=== PATIENT | female | born 1965 | race Caucasian/White ===

== ENCOUNTER 2016-11-19 09:30 | Emergency (ER) | payer OTHER ==
[~2016-11-19] VITALS: Ht 154.9 cm; Wt 56.2 kg
[~2016-11-19 09:30] MED LIST: ALBUTEROL0.09 MG/A1 INH; AMOXICILLIN500 M1 PO; AMOXICILLIN500 M3 PO; ATORVASTATIN CA10 M1 PO; AUGMENTIN 875 M1 TAB PO; NASONEX0.05 MG/Ac NAS; NASONEX17 GM NASB; PREDNISONE50 MG PO; RESTASIS 0.4 M0.4 ML OPH; ROBITUSSIN W/CO10 ML PO; TESSALON PERLE100 M1 PO; TESSALON PERLE100 MG PO; ZITHROMAX Z-PA250 M1 PO
[2016-11-19] MEDS ORDERED: LANSOPRAZOLE30 M2 PO (10:51)
[2016-11-19] MEDS ORDERED: BIAXIN500 M1 PO (10:52)
[2016-11-19] MEDS ORDERED: AMOXICILLIN500 M3 PO (10:52)
--- NOTE | 2016-11-19 10:52 | ED GI/GU/ABDOMINAL COMPLAINT ---
History of Present Illness General Chief Complaint: Female Urogenital Problems Stated Complaint: ? UTI Source: patient Exam Limitations: poor historian Vital Signs & Intake/Output Vital Signs & Intake/Output Vital Signs Date Time Temp Pulse Resp B/P B/P Pulse O2 O2 Flow FiO2 Mean Ox Delivery Rate 11/19 1156 97.8 98 18 148/81 100 Room Air 11/19 1020 97.5 108 18 164/86 99 Room Air Allergies Coded Allergies: NO KNOWN ALLERGIES (04/04/13) Reconcile Medications Atorvastatin Calcium 10 MG TABLET 1 TAB PO DAILY CHOLESTEROL (Reported) Lansoprazole/Amoxiciln/Clarith (Prevpac Patient Pack) 30 MG-500 MG-500 MG COMBO..PKG 1 PAC PO BID ANTIBIOTIC, INFECTION (Reported) Mirtazapine 15 MG TABLET 1 TAB PO QPM SLEE[ (Reported) Triage Note: PT STATES THAT SHE HAS BEEN HAVING URINARY RETENTION , STARTED 2 WEEKS AGO, WAS SEEN BY HER PMD 2 WEEKS AGO AND WAS STARTED ON ABT DUE TO UTI, WAS SEEN BY UROLOGIST LAST TUESDAY AND THEY STRAIGHT CATHED HER AFTER SHE VOIDED AND SHE HAD A LOT OF URINE STILL IN HER BLADDER. PT ALSO STATES THAT SHE IS ON ABT FOR H PYLORI. Triage Nurses Notes Reviewed? yes LMP (ages 10-50): post menopausal ? n Is pt currently ? No Onset: Abrupt Duration: day(s): (2-3) Timing: single episode today Quality/Severity: cramping, dullness, fullness Severity Numbers: 7 Location: suprapubic Radiation: no radiation Activities at Onset: urinating Prior Abdominal Problems: none Past Sexual History: Unobtainable at this time Sexually Active: No Last Time You Were Sexual: greater than 2 months ago No Modifying Factors: none Modifying Factors: Worsens With: urinating. Associated Symptoms: abdominal pain, lower back pain, urinary frequency HPI: 50-year-old female with history of recurrent UTIs presents complaining of urinary frequency suprapubic abdominal pain and lower back pain for the past 2 days. Patient worse that she initially started having symptoms 2 weeks ago and was seen by her primary care doctor. She was started on Bactrim DS for possible UTI. Patient reports that symptoms did not improve with antibiotics and she has a history of urinary retention. She feels that when she chose to the bathroom she is unable to completely void her bladder. She reports pain is located in the suprapubic area and lower back that is worse with movement. She discussed pain as a pressure and fullness is rated as a 7 out of 10. She's been taking ibuprofen 800 without significant improvement. Patient is currently also on antibiotics for H. pylori. No fevers, vaginal discharge, vaginal bleeding, sexual activity, chest pain, shortness of breath, diarrhea. (AMY BORDEN PA-C) Past History Travel History Traveled to [place] past 21 day No Medical History Any Pertinent Medical History? see below for history Neurological: NONE EENT: NONE Cardiovascular: hyperlipidemia Respiratory: asthma Gastrointestinal: NONE Hepatic: NONE Renal: NONE Musculoskeletal: NONE Psychiatric: anxiety Endocrine: NONE Blood Disorders: NONE Cancer(s): NONE COOKER SULFATE/Reproductive: NONE Surgical History Surgical History: N Psychosocial History What is your primary language Colombian Tobacco Use: Never used ETOH Use: denies use Illicit Drug Use: denies illicit drug use Family History Hx Contributory? No (AMY BORDEN PA-C) Review of Systems Review of Systems Constitutional: Reports: no symptoms. EENTM: Reports: no symptoms. Respiratory: Reports: no symptoms. Cardiovascular: Reports: no symptoms. GI: Reports: see HPI, abdominal pain, bloating. Genitourinary: Reports: see HPI, frequency, urgency. Musculoskeletal: Reports: no symptoms. Skin: Reports: no symptoms. Neurological/Psychological: Reports: no symptoms. Hematologic/Endocrine: Reports: no symptoms. Immunologic/Allergic: Reports: no symptoms. All Other Systems: Reviewed and Negative (AMY BORDEN PA-C) Physical Exam Physical Exam General Appearance: well developed/nourished, no apparent distress, alert, awake , mild distress Head: atraumatic, normal appearance Eyes: Bilateral: normal appearance, PERRL, EOMI, normal inspection. Ears, Nose, Throat, Mouth: hearing grossly normal, moist mucous membrane, Tympanic normal Neck: normal inspection, supple, full range of motion, normal alignment Respiratory: normal breath sounds, chest non-tender, no respiratory distress, lungs clear Cardiovascular: regular rate/rhythm, edema, normal peripheral pulses Peripheral Pulses: 2+ tibialis posterior (R), 2+ tibialis posterior (L), 2+ dorsalis pedis (R), 2+ dorsalis pedis (L) Gastrointestinal: normal bowel sounds, soft, no organomegaly, tenderness ( SUPRAPUBIC) Back: normal inspection, normal range of motion, no vertebral tenderness Extremities: normal range of motion Neurologic/Psych: no motor/sensory deficits, awake, alert, oriented x 3, normal gait Skin: intact, normal color, warm/dry Comments: Pain with palpation in the suprapubic area. Lumbar paraspinous muscle tenderness palpation. No rebound tenderness or guarding. Core Measures ACS in differential dx? No Severe Sepsis Present: No Septic Shock Present: No (BLACK PA-C,AMY) Progress Differential Diagnosis: appendicitis, biliary colic, cholecystitis, diverticulitis, gastritis, hernia, kidney stone, UTI/pyelo, URINARY RETENTION Plan of Care: Orders Procedure Date/time Status Add-on Test (ER Only) 11/19 1140 Active CULTURE,URINE 11/19 1140 Active COMPREHENSIVE METABOLIC PANEL 11/19 1119 Complete CBC WITHOUT DIFFERENTIAL 11/19 1119 Complete URINALYSIS 11/19 1032 Complete Laboratory Tests 11/19/16 1124: Anion Gap 12, Estimated GFR > 60, BUN/Creatinine Ratio 25.7 H, Glucose 97, Calcium 10.1, Total Bilirubin 0.5, AST 73 H, ALT 110 H, Alkaline Phosphatase 63, Total Protein 7.9, Albumin 4.8, Globulin 3.1, Albumin/Globulin Ratio 1.5, CBC w Diff NO MAN DIFF REQ, RBC 4.32, MCV 88.4, MCH 29.7, RDW 12.4, MPV 7.5, Gran % 65.6, Lymphocytes % 22.5, Monocytes % 9.2, Eosinophils % 2.3, Basophils % 0.4, Absolute Granulocytes 4.3, Absolute Lymphocytes 1.5, Absolute Monocytes 0.6 , Absolute Eosinophils 0.2, Absolute Basophils 0, PUBS MCHC 33.6 11/19/16 1032: Urine Color STRAW, Urine Clarity CLEAR, Urine pH 6.0, Ur Specific Bryan <= 1.005, Urine Protein NEG, Urine Ketones NEG, Urine Nitrite NEG, Urine Bilirubin NEG, Urine Urobilinogen 0.2, Ur Leukocyte Esterase NEG, Ur Microscopic SEDIMENT EXAMINED, Urine RBC RARE, Urine WBC RARE, Urine Hemoglobin TRACE-INTACT, Urine Glucose NEG Microbiology 11/19 1032 URINE ROUT: Urine Culture - RECD 12:11 PM blood work is back and shows mildly elevated potassium at 5.3 elevated AST and ALT but is otherwise within normal limits. CAT scan of the abdomen and pelvis is within normal limits. There is a moderate amount of urine in the bladder but it is not distended. Patient reports that she recently was able to urinate after the CAT scan and is feeling much better. Reviewed all results with patient and advised that she needs to follow up with her primary care doctor and her urologist this week. We'll follow-up on the urine culture. Discussed case with Dr. Tang and he is in agreement with the plan. she is nontoxic appearing at discharge and is in agreement with the plan. (MICHI BAPTISTE,AMY) Diagnostic Imaging: Viewed by Me: CT Scan. Initial ED EKG: none Comments: EXAM TYPE: CAT - CT ABD & PELVIS W/O IV CONTRAS EXAMINATION: CT ABDOMEN AND PELVIS WITHOUT CONTRAST CLINICAL INFORMATION: Back pain pelvic pain COMPARISON: None TECHNIQUE: Multidetector volumetric imaging was performed from the superior aspect of the liver through the pubic symphysis. Sagittal and coronal reformatted images were obtained on the technologist's workstation. DLP: 254 mGy-cm FINDINGS: LUNG BASES: The visualized lung bases are unremarkable. LIVER, GALLBLADDER, AND BILIARY TREE: The liver is normal in size, shape, and attenuation. No focal hepatic lesion or biliary ductal dilatation is present. The gallbladder is unremarkable with no evidence of radiopaque gallstones, gallbladder wall thickening, or obvious pericholecystic inflammatory changes. PANCREAS: The pancreas is normal in appearance SPLEEN: Spleen is normal in size and attenuation with no focal findings ADRENAL GLANDS: Normal KIDNEYS AND URETERS: Both kidneys are normal in size and cortical thickness. No intrarenal calculus is identified. No mass or perinephric fluid is seen. There is no hydronephrosis or hydroureter. BLADDER: The urinary bladder is moderately full and unremarkable in appearance GASTROINTESTINAL TRACT: There is no evidence for large or small bowel obstruction or acute inflammation. There is no significant diverticulosis or diverticulitis. Appendix is not visualized but no inflammatory changes are seen in the right lower quadrant ABDOMINAL WALL: No significant hernia is appreciated. LYMPH NODES: No bulky adenopathy VASCULAR: The abdominal aorta and inferior vena cava are normal in size and appearance PELVIC VISCERA: Uterus and adnexal structures are normal in appearance. No mass, free fluid, or abnormal fluid collection is identified. Several small round calcifications in the pelvis are outside the urinary tract and are likely phleboliths. OSSEOUS STRUCTURES: No acute bony abnormality is seen. IMPRESSION: No significant abnormality is seen in the CT scan of the abdomen and pelvis. DICTATED BY: REBEKAH STEELE MD DATE/TIME DICTATED:11/19/161149 PROGRAMMABLE LOGIC CONTROLLER ASSEMBLER:ASA DATE/TIME TRANSCRIBED:11/19/161149 (AMY BORDEN PA-C) Departure Departure Disposition: HOME OR SELF CARE Condition: Stable Clinical Impression Primary Impression: Abdominal pain Qualifiers: Abdominal location: lower abdomen, unspecified Qualified Code: R10.30 - Lower abdominal pain, unspecified Secondary Impressions: Acute urinary retention Referrals: NICHOLE GHOTRA APRN (PCP/Family) Additional Instructions: Rest drink plenty fluids. Continue antibiotics as directed by her primary care doctor. Make a follow-up appointment with her primary care doctor and urologist this week. Use ibuprofen 100 mg every 8 hours with food as needed for pain. Review of results of today's visit with her primary care doctor. Return to the emergency department with any concerns. Departure Forms: Customer Survey General Discharge Information (AMY BORDEN PA-C) PA/ATHLETICS TEACHER Co-Sign Statement Statement: ED Attending supervision documentation- [] I saw and evaluated the patient. I have also reviewed all the pertinent lab results and diagnostic results. I agree with the findings and the plan of care as documented in the PA's/ATHLETICS TEACHER's documentation. [x] I have reviewed the ED Record and agree with the PA's/ATHLETICS TEACHER's documentation. [] Additions or exceptions (if any) to the PAs/ATHLETICS TEACHER's note and plan are summarized below: [] (IRENE TANG DO
[2016-11-19] MEDS ORDERED: MIRTAZAPINE15 M2 PO (10:54)
[2016-11-19] MEDS ORDERED: PREVPAC PATIEN1 EACH PO (10:55)
[2016-11-19 11:51] LABS: ABSOLUTE BASOPHIL COUNT 0 /CUMM (0.0-0.2); ABSOLUTE EOSINOPHIL COUNT 0.2 /CUMM (0.0-0.7); ABSOLUTE GRANULOCYTE CT 4.3 /CUMM (1.4-6.5); ABSOLUTE LYMPH COUNT 1.5 /CUMM (1.2-3.4); ABSOLUTE MONOCYTE COUNT 0.6 /CUMM (0.10-0.60); BASOPHIL % 0.4 % (0.0-2.0); EOSINOPHIL % 2.3 % (0-5); HEMATOCRIT 38.2 % (37-47); MEAN CORPUSCULAR HGB 29.7 PG (27.0-31.0); MEAN CORPUSCULAR HGB CONC 33.6 G/DL (33.0-37.0); MEAN CORPUSCULAR VOLUME 88.4 FL (81.0-99.0); MEAN PLATELET VOLUME 7.5 FL (7.4-10.4); PLATELET COUNT 289 /CUMM (130-400); RBC DISTRIBUTION WIDTH 12.4 % (11.5-14.5); RED BLOOD CELL CT 4.32 /CUMM (4.20-5.40); WHITE BLOOD CELL COUNT 6.6 /CUMM (4.8-10.8)
[2016-11-19 11:56] VITALS: BP 148/81
[2016-11-19 11:57] LABS: GRANULOCYTE % 65.6 % (42.2-75.2)
--- NOTE | 2016-11-19 12:06 | CT SCAN REPORT ---
EXAMINATION: CT ABDOMEN AND PELVIS WITHOUT CONTRAST CLINICAL INFORMATION: Back pain pelvic pain COMPARISON: None TECHNIQUE: Multidetector volumetric imaging was performed from the superior aspect of the liver through the pubic symphysis. Sagittal and coronal reformatted images were obtained on the technologist's workstation. DLP: 254 mGy-cm FINDINGS: LUNG BASES: The visualized lung bases are unremarkable. LIVER, GALLBLADDER, AND BILIARY TREE: The liver is normal in size, shape, and attenuation. No focal hepatic lesion or biliary ductal dilatation is present. The gallbladder is unremarkable with no evidence of radiopaque gallstones, gallbladder wall thickening, or obvious pericholecystic inflammatory changes. PANCREAS: The pancreas is normal in appearance SPLEEN: Spleen is normal in size and attenuation with no focal findings ADRENAL GLANDS: Normal KIDNEYS AND URETERS: Both kidneys are normal in size and cortical thickness. No intrarenal calculus is identified. No mass or perinephric fluid is seen. There is no hydronephrosis or hydroureter. BLADDER: The urinary bladder is moderately full and unremarkable in appearance GASTROINTESTINAL TRACT: There is no evidence for large or small bowel obstruction or acute inflammation. There is no significant diverticulosis or diverticulitis. Appendix is not visualized but no inflammatory changes are seen in the right lower quadrant ABDOMINAL WALL: No significant hernia is appreciated. LYMPH NODES: No bulky adenopathy VASCULAR: The abdominal aorta and inferior vena cava are normal in size and appearance PELVIC VISCERA: Uterus and adnexal structures are normal in appearance. No mass, free fluid, or abnormal fluid collection is identified. Several small round calcifications in the pelvis are outside the urinary tract and are likely phleboliths. OSSEOUS STRUCTURES: No acute bony abnormality is seen. IMPRESSION: No significant abnormality is seen in the CT scan of the abdomen and pelvis.
[2016-11-19] MEDS ORDERED: PYRIDIUM100 M1 PO (23:44)
== END 2016-11-19 12:29 ==
LOC: ERH 09:30
PROVIDERS: Physician Assistant Medical
DX: N39.0 Urinary tract infection, site not specified (principal)
CPT/HCPCS: 74176; 81001; 87086; 96360

== ENCOUNTER 2016-11-19 21:40 | Emergency (ER) | payer OTHER ==
[~2016-11-19 21:40] MED LIST changes: +BIAXIN500 M1 PO; +LANSOPRAZOLE30 M2 PO; +MIRTAZAPINE15 M2 PO; +PREVPAC PATIEN1 EACH PO
--- NOTE | 2016-11-19 21:55 | ED GI/GU/ABDOMINAL COMPLAINT ---
History of Present Illness General Chief Complaint: General Adult Stated Complaint: PT CAN'T URINATED BLADDER IS FULL Source: patient Exam Limitations: no limitations Vital Signs & Intake/Output Vital Signs & Intake/Output Vital Signs Date Time Temp Pulse Resp B/P B/P Pulse O2 O2 Flow FiO2 Mean Ox Delivery Rate 11/19 2151 98.0 90 22 131/78 98 Allergies Coded Allergies: NO KNOWN ALLERGIES (04/04/13) Reconcile Medications Atorvastatin Calcium 10 MG TABLET 1 TAB PO DAILY CHOLESTEROL (Reported) Lansoprazole/Amoxiciln/Clarith (Prevpac Patient Pack) 30 MG-500 MG-500 MG COMBO..PKG 1 PAC PO BID ANTIBIOTIC, INFECTION (Reported) Mirtazapine 15 MG TABLET 1 TAB PO QPM SLEE[ (Reported) Phenazopyridine HCl (Pyridium) 100 MG TABLET 1 TAB PO TID PRN PAINFUL URINATION Triage Note: PER PT SEEN THIS AM D/T INABILITY TO VOID, WAS TOLD BY ED PA HER LIVER WAS INFLAMMED, RETURNS NOW D.T INABILITY TO VOID LAST VOID 3 PM FEELS FELL. Triage Nurses Notes Reviewed? yes ? n Is pt currently ? No Onset: Gradual Duration: hour(s): Timing: recent history Quality/Severity: cramping Location: suprapubic Radiation: no radiation Activities at Onset: none Prior Abdominal Problems: similar symptoms Modifying Factors: Worsens With: rest, urinating. Associated Symptoms: difficulty urinating HPI: 50-year-old woman diagnosed with H. pylori several weeks ago taking antibiotics, also taking mirtazapine in the evening to the past 2 weeks, was also seen this morning for abdominal pain and had a benign CAT scan and regular lab workup, presents with urinary retention. She states that shortly after she was in the emergency department she was unable to urinate. She last urinated several hours ago. She feels pressure and bladder swelling. She states that she has only been able to urinate a few drops. She has no fever chills nausea vomiting diarrhea. She is otherwise well and has no other concerns. Past History Travel History Traveled to [place] past 21 day No Medical History Any Pertinent Medical History? see below for history Neurological: NONE EENT: NONE Cardiovascular: hyperlipidemia Respiratory: asthma Gastrointestinal: NONE Hepatic: NONE Renal: NONE Musculoskeletal: NONE Psychiatric: anxiety Endocrine: NONE Blood Disorders: NONE Cancer(s): NONE DISMANTLER/Reproductive: NONE Surgical History Surgical History: N Psychosocial History What is your primary language [place] Tobacco Use: Never used Family History Hx Contributory? No Review of Systems Review of Systems Constitutional: Reports: no symptoms. EENTM: Reports: no symptoms. Respiratory: Reports: no symptoms. Cardiovascular: Reports: no symptoms. GI: Reports: no symptoms. Genitourinary: Reports: no symptoms. Musculoskeletal: Reports: no symptoms. Skin: Reports: no symptoms. Neurological/Psychological: Reports: no symptoms. Hematologic/Endocrine: Reports: no symptoms. Immunologic/Allergic: Reports: no symptoms. All Other Systems: Reviewed and Negative Physical Exam Physical Exam General Appearance: well developed/nourished, mild distress Head: atraumatic, normal appearance Eyes: Bilateral: normal appearance. Ears, Nose, Throat, Mouth: hearing grossly normal Neck: normal inspection, supple, full range of motion Respiratory: normal breath sounds, chest non-tender, no respiratory distress, quiet respiration, lungs clear Cardiovascular: regular rate/rhythm Gastrointestinal: normal bowel sounds, soft, non-tender, no organomegaly Back: normal inspection Extremities: normal range of motion Neurologic/Psych: no motor/sensory deficits, awake, alert, oriented x 3 Skin: intact, normal color, warm/dry Core Measures ACS in differential dx? No Severe Sepsis Present: No Septic Shock Present: No Progress Differential Diagnosis: UTI/pyelo, urinary retention Plan of Care: Orders Procedure Date/time Status Garcia, Insertion/Removal/Asses 11/19 2154 Active CULTURE,URINE 11/19 2154 Active URINALYSIS 11/19 2154 Complete Current Medications Sig/Richard Start time Last Medication Dose Stop Time Status Admin Phenazopyridine HCl 100 MG ONCE ONE 11/19 2345 UNVr 11/19 (Pyridium) 11/19 2346 2353 Laboratory Tests 11/19/16 2245: Urine Color YEL, Urine Clarity CLEAR, Urine pH 6.0, Ur Specific [place] 1.020, Urine Protein NEG, Urine Ketones NEG, Urine Nitrite NEG, Urine Bilirubin NEG, Urine Urobilinogen 0.2, Ur Leukocyte Esterase NEG, Ur Microscopic SEDIMENT EXAMINED, Urine RBC 3-5, Urine WBC RARE, Ur Epithelial Cells RARE, Urine Mucus RARE, Urine Hemoglobin SMALL H, Urine Glucose NEG Microbiology 11/19 2245 URINE ROUT: Urine Culture - RECD Initial ED EKG: none Departure Departure Disposition: HOME OR SELF CARE Condition: Stable Clinical Impression Primary Impression: Dysuria Referrals: NICHOLE GHOTRA APRN (PCP/Family) Departure Forms: Customer Survey General Discharge Information Prescriptions: Current Visit Scripts Phenazopyridine HCl (Pyridium) 1 TAB PO TID PRN PAINFUL URINATION #20 TAB Comments 11/19/16, 23:50... pt with 80 ml from garcia. no sign of urinary retention... u/a negative x 2, labs benign and ct scan benign from this morning... pt safe for discharge with close follow up in ED if symptoms worsen.
[2016-11-19] MEDS ORDERED: PYRIDIUM100 M1 PO (23:44)
[2016-11-19 23:55] VITALS: BP 129/74
== END 2016-11-19 23:54 ==
LOC: ERH 21:40
DX: R30.0 Dysuria (principal)
CPT/HCPCS: 81001; 87086

== ENCOUNTER 2017-06-21 10:16 | Emergency (ER) | payer OTHER ==
[~2017-06-21] VITALS: Ht 154.9 cm; Wt 58.1 kg
[~2017-06-21 10:16] MED LIST changes: +PYRIDIUM100 M1 PO
[2017-06-21 11:23] LABS: ABSOLUTE BASOPHIL COUNT 0 /CUMM (0.0-0.2); ABSOLUTE EOSINOPHIL COUNT 0.3 /CUMM (0.0-0.7); ABSOLUTE GRANULOCYTE CT 3.4 /CUMM (1.4-6.5); ABSOLUTE LYMPH COUNT 2.1 /CUMM (1.2-3.4); ABSOLUTE MONOCYTE COUNT 0.5 /CUMM (0.10-0.60); BASOPHIL % 0.5 % (0.0-2.0); GRANULOCYTE % 53.6 % (42.2-75.2); MEAN CORPUSCULAR HGB 29.7 PG (27.0-31.0); MEAN CORPUSCULAR HGB CONC 33.6 G/DL (33.0-37.0); MEAN CORPUSCULAR VOLUME 88.5 FL (81.0-99.0); MEAN PLATELET VOLUME 7.9 FL (7.4-10.4); PLATELET COUNT 303 /CUMM (130-400); RBC DISTRIBUTION WIDTH 12.5 % (11.5-14.5); RED BLOOD CELL CT 4.52 /CUMM (4.20-5.40); WHITE BLOOD CELL COUNT 6.3 /CUMM (4.8-10.8)
--- NOTE | 2017-06-21 11:47 | RADIOLOGY REPORT ---
EXAMINATION: XR CHEST CLINICAL INFORMATION: Dyspnea, chest pain on inspiration. COMPARISON: 06/20/2015. TECHNIQUE: Frontal and lateral views of the chest were obtained. FINDINGS: The lungs are clear bilaterally. There is no evidence of pleural effusion or pneumothorax. The central pulmonary vasculature is within normal limits. The cardiomediastinal silhouette is not enlarged. The bony structures and overlying soft tissues are unremarkable. IMPRESSION: No acute cardiopulmonary findings.
--- NOTE | 2017-06-21 12:02 | ED CARDIAC/CP/PALPITATIONS ---
History of Present Illness General Chief Complaint: Chest Pain Stated Complaint: CP Source: patient Exam Limitations: no limitations Vital Signs & Intake/Output Vital Signs & Intake/Output Vital Signs Date Time Temp Pulse Resp B/P B/P Pulse O2 O2 Flow FiO2 Mean Ox Delivery Rate 06/21 1532 98.1 63 18 114/74 98 Room Air 06/21 1229 97.0 71 18 143/78 98 Room Air 06/21 1143 Room Air ED Intake and Output 06/22 0000 06/21 1200 Intake Total 0 Output Total Balance 0 Intake, Oral 0 Patient 128 lb Weight Weight Reported by Patient Measurement Method Allergies Coded Allergies: NO KNOWN ALLERGIES (04/04/13) Reconcile Medications Atorvastatin Calcium 10 MG TABLET 1 TAB PO DAILY CHOLESTEROL (Reported) Lansoprazole/Amoxiciln/Clarith (Prevpac Patient Pack) 30 MG-500 MG-500 MG COMBO..PKG 1 PAC PO BID ANTIBIOTIC, INFECTION (Reported) Mirtazapine 15 MG TABLET 1 TAB PO QPM SLEE[ (Reported) Omeprazole 40 MG CAPSULE.DR 1 CAP PO DAILY ACID REFLUX Phenazopyridine HCl (Pyridium) 100 MG TABLET 1 TAB PO TID PRN PAINFUL URINATION Triage Note: PT TO ER C/C LEFT SIDED C/P X 40 MINUTES STARTING WHEN PATIENT WAS WALKING. PAIN WORSE WITH MOVEMENT AND DEEP INSPIRATION. +NAUSEA. TOOK 800 MG IBUPROFEN AT 0900 FOR RECTAL PAIN (HX OF RECTAL FISSURE) Triage Nurses Notes Reviewed? yes Onset: Morning Duration: hour(s): Timing: single episode today Quality/Severity: moderate, burning Location: central Radiation: no radiation Activities at Onset: none Prior Chest Pain/Card Workup: no prior chest pain, no prior cardiac workup Modifying Factors: Worsens With: breathing, movement. : No HPI: PATIENT IS A 51 Y/O FEMALE. PMH OF HLD, PRE-DIABETES, AND APPENDICITIS, PRESENTS FOR 2 HOURS OF BURNING CHEST PAIN. PATIENT STATES THAT IT IS CENTRAL CHEST PAIN AND IS A 7/10 WITH NO RADIATION. SHE WAS GETTING DRESSED WHEN THE PAIN STARTED AND TOOK 800MG IBUOPROFEN WHICH HELPED REDUCE HER SYMPTOMS. SHE SAYS THE PAIN IS WORSE WITH DEEP BREATHING AND MOVEMENT. SHE HAS MILD NAUSEA WITH NO VOMITING , HEADACHES, DIZZINESS, FEVERS, CHILLS, ABDOMINAL PAIN, CONSTIPATION, DIARRHEA, OR DYSURIA. (Kuldeep RAMIREZ,Irvin) Past History Travel History Traveled to [place] past 21 day No Medical History Any Pertinent Medical History? 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 Yes (Irvin Caba) Review of Systems Review of Systems Constitutional: Reports: no symptoms. EENTM: Reports: no symptoms. Respiratory: Denies: see HPI. Cardiovascular: Denies: see HPI. GI: Reports: no symptoms. Genitourinary: Reports: no symptoms. Musculoskeletal: Reports: no symptoms. Skin: Reports: no symptoms. Neurological/Psychological: Reports: no symptoms. Hematologic/Endocrine: Reports: no symptoms. Immunologic/Allergic: Reports: no symptoms. All Other Systems: Reviewed and Negative (Irvin Caba) Physical Exam Physical Exam General Appearance: well developed/nourished, no apparent distress, alert, awake , anxious Head: atraumatic, normal appearance Eyes: Bilateral: normal appearance. Ears, Nose, Throat: normal ENT inspection Neck: normal inspection Respiratory: normal breath sounds, chest non-tender, no respiratory distress Cardiovascular: regular rate/rhythm Peripheral Pulses: 2+ radial (R), 2+ radial (L) Gastrointestinal: normal bowel sounds, soft, non-tender Back: normal range of motion Extremities: normal inspection Neurologic/Psych: awake, alert, oriented x 3 Skin: intact, normal color, warm/dry Core Measures ACS in differential dx? Yes CVA/TIA Diagnosis No Sepsis Present: No Sepsis Focused Exam Completed? No All Positive = PERC Ruled Out: Positive: no hemoptysis, no hormone use, no prior DVT or PE, no unilateral leg swellin, no surgery/trauma w/in 4w. Negative: age < 50 years. (Irvin Caba) Progress Differential Diagnosis: AMI, cholecystitis, musculoskeletal pain, myocarditis, pancreatitis, pericarditis, pneumonia, pneumothorax, pulmonary embolism, PUD/ GERD, unstable angina Plan of Care: Orders Procedure Date/time Status TROPONIN LEVEL 06/21 1415 Complete EKG 06/21 1415 Active D-DIMER 06/21 1147 Complete Laboratory Tests 06/21/17 1425: Troponin I < 0.01 06/21/17 1145: D-Dimer High Sensitivty < 200 Diagnostic Imaging: Viewed by Me: Radiology Read. Discussed w/RAD: Radiology Read. Radiology Impression: PATIENT: MYLA DIEGO PRESENT AGE: 51 PATIENT ACCOUNT NO: [id number] : 63 LOCATION: [facility] ORDERING PHYSICIAN: Fauzia RAMIREZ SERVICE DATE: 06/21/17 EXAM TYPE: RAD - XRY-CHEST XRAY, TWO VIEWS EXAMINATION: XR CHEST CLINICAL INFORMATION : Dyspnea, chest pain on inspiration. COMPARISON: 06/20/2015. TECHNIQUE: Frontal and lateral views of the chest were obtained. FINDINGS: The lungs are clear bilaterally. There is no evidence of pleural effusion or pneumothorax. The central pulmonary vasculature is within normal limits. The cardiomediastinal silhouette is not enlarged. The bony structures and overlying soft tissues are unremarkable. IMPRESSION: No acute cardiopulmonary findings. 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 <Electronically signed in Other Vendor System> SIGNED BY: Tyra Gonsalez MD 06/21/171146 Initial ED EKG: normal sinus rhythm, rate (96), borderline T-wave abnormalities Repeat EKG: unchanged (Irvin Caba) Departure Departure Disposition: HOME OR SELF CARE Condition: Stable Clinical Impression Primary Impression: Atypical chest pain Referrals: Altagracia Kumar APRN (PCP/Family) Jack CHAVEZ PHD,Tariq Menchaca Additional Instructions: Take omeprazole as prescribed. Follow-up with market analyst provided. Decrease the amount of ibuprofen you're taking at home. Take Tylenol instead. Return if any concerns worsening symptoms. Please go over all results of today's visit with your primary care doctor. Contact your primary care doctor to let them know you were here in the emergency room. There may be nonspecific findings which may not be related to your visit today here in the emergency room but may require further evaluation and chronic monitoring by your primary care doctor. If you had a laceration today the chance of foreign body always remains. You should follow-up with your primary care doctor for recheck in 3-5 days for a wound check. If you had an x-ray done there is a chance that a fracture could have been missed on initial read and you should follow-up with your primary care doctor for repeat x-rays if symptoms persist. If your blood pressure was elevated here in the emergency room please have rechecked by our primary care doctor within the next 48. If you were prescribed a narcotic here in the emergency room or any type of controlled substances you're not allowed to drive while taking this medication or operate any type of heavy machinery. Narcotics can make you feel lightheaded dizziness nausea and can cause constipation. You may need to pick up driver a stool softener. Thank you for choosing [facility] emergency room. Please return to the emergency room immediately if you have any other concerns worsening of symptoms. Departure Forms: Customer Survey General Discharge Information Prescriptions: Current Visit Scripts Omeprazole 1 CAP PO DAILY #30 CAP Comments 06/21/2017 5:39:09 PM patient clinically looks well. She is nontoxic-appearing. She is in no apparent distress. Symptoms had improved after ibuprofen that she took. Currently asymptomatic. Follow-up with cardiology as outpatient. Return if any concerns. (Irvin Caba) PA/SAP INTEGRATION ARCHITECT Co-Sign Statement Statement: ED Attending supervision documentation- [] I saw and evaluated the patient. I have also reviewed all the pertinent lab results and diagnostic results. I agree with the findings and the plan of care as documented in the PA's/SAP INTEGRATION ARCHITECT's documentation. [X] I have reviewed the ED Record and agree with the PA's/SAP INTEGRATION ARCHITECT's documentation. [] Additions or exceptions (if any) to the PAs/SAP INTEGRATION ARCHITECT's note and plan are summarized below: [] (Oswaldo CHAVEZ,Janna) Critical Care Note Critical Care Note Critical Care Time: non-applicable (Irivn Caba)
[2017-06-21 15:32] VITALS: BP 114/74
[2017-06-21] MEDS ORDERED: OMEPRAZOLE40 M1 PO (15:33)
== END 2017-06-21 15:49 ==
LOC: ERH 10:16
PROVIDERS: Physician Assistant
DX: R07.89 Other chest pain (principal)
CPT/HCPCS: 71046; 93005; 93010